=== PATIENT | female | born 1960 | race Caucasian/White ===

== ENCOUNTER 2016-05-23 15:44 | Inpatient (IN) | payer BC ==
[~2016-05-23] VITALS: Ht 157.5 cm; Wt 79.0 kg
[~2016-05-23 15:44] MED LIST: LEVOTHYROXINE PO
[2016-05-23] MEDS ORDERED: ONDANSETRON 4 MG INJ IV STA (18:25)
[2016-05-23] MEDS ORDERED: SOD CHLORIDE 0.9% 1,000 ML IV STA (18:25)
[2016-05-23] MEDS ORDERED: morphine 4 MG/ML VIAL IV STA (18:25)
[2016-05-23 19:38] LABS: ADD SCAN DIFF NO
[2016-05-23 19:41] LABS: BASOPHILS % 0.2 % (0.0-2.0); EOSINOPHILS % 0.2 % (0.0-7.0); HEMATOCRIT 43.6 % (37.0-47.0); HEMOGLOBIN 14.3 g/dl (12.0-16.0); LYMPHOCYTES # 1.1 10^3/ul (0.8-2.9); LYMPHOCYTES % 11.9 % (15.0-51.0); MEAN CORPUSCULAR HEMOGLOBIN 31.4 pg (29.0-33.0); MEAN CORPUSCULAR HGB CONC 32.8 g/dl (32.0-37.0); MEAN CORPUSCULAR VOLUME 95.8 fl (82.0-101.0); MEAN PLATELET VOLUME 9.8 fl (7.4-10.4); MONOCYTE # 0.4 10^3/ul (0.3-0.9); MONOCYTES % 4.6 % (0.0-11.0); NEUTROPHIL # 7.7 10^3/ul (1.6-7.5); NEUTROPHILS % 82.7 % (39.0-77.0); PLATELET COUNT 205 10^3/UL (140-415); RED BLOOD COUNT 4.55 10^6/ul (4.20-5.40); RED CELL DISTRIBUTION WIDTH 12.8 % (11.5-14.5); WHITE BLOOD COUNT 9.3 10^3/ul (4.8-10.8)
[2016-05-23 19:52] LABS: ALBUMIN 4.6 g/dl (3.3-4.9)
[2016-05-23 19:53] LABS: POTASSIUM 3.8 mmol/L (3.5-5.1)
[2016-05-23 19:55] LABS: BILIRUBIN,INDIRECT 0.6 mg/dl (0-1.1); BILIRUBIN,TOTAL 0.6 mg/dl (0.2-1.3); CREATININE 0.78 mg/dl (0.44-1.00)
[2016-05-23 19:56] LABS: ALBUMIN/GLOBULIN RATIO 1.7; CALCIUM 9.6 mg/dl (8.4-10.2); TOTAL PROTEIN 7.3 g/dl (6.1-8.1)
--- NOTE | 2016-05-23 20:12 | RADRPT ---
PROCEDURE: CT abdomen and pelvis without IV contrast. CLINICAL INDICATION: Abdomen pain. TECHNIQUE: CT scan of the abdomen and pelvis was performed on a [address] scanner. The patient is scanned without IV contrast. Coronal and sagittal reformatted images were obtained from the axia l source images. Images were reviewed on a high-resolution PACS workstation. Total radiation dose: Total CTDIvol: 9.6 mGy. Total DLP: 547 mGy-cm. COMPARISON: None available. FINDINGS: CT abdomen: The lung bases are clear. The heart is not enlarged without pericardial thickening or effusion. The liver is normal in size and density without focal mass or intrahepatic biliary dilatation. The spleen is normal in size and homogeneous in density. The stomach is partially collapsed but is sameera sly unremarkable. The pancreas as visualized is normal. The gallbladder is normal and there is no evidence of biliary dilatation. The adrenal glands are symmetrical and normal. The kidneys are symmetrically normal bilaterally. N o renal calculus or obstructive uropathy or mass lesion is seen.. The aorta is normal in caliber. There is no retroperitoneal lymphadenopathy. The jaspal hepatis reg ion is clear. The bowel and mesentery, as visualized, are equally unremarkable. CT pelvis: There is acute early appendicitis with mild periappendiceal stranding in the right lower quadrant. The appendix measures up to 1 cm in diameter. The small bowel loops situated within the pelvis are unremarkable. There is 2.2 cm mature cystic teratoma (dermoid) in the left ovary. Otherwise, the f emale pelvic organs are normal. The pelvic sidewalls and inguinal regions are clear. No mass, lym phadenopathy is seen. No acute inflammation seen. The urinary bladder is normal. The surrounding osseous structures are unremarkable. No osteolytic or osteoblastic lesion is detect ed. IMPRESSION: 1. Acute early appendicitis with mild periappendiceal stranding in the right lower quadrant. The a ppendix measures up to 1 cm in diameter. 2. 2.2 cm mature cystic teratoma (dermoid) in the left ovary. 3. Critical finding was given to the ER physician Dr. Gomez, 08:08 p.m., 05/23/2016.. RPTAT: GG .Paul Sheridan MD, MD Date Time Electronically viewed and signed by .Paul Sheridan MD, MD on 05/23/2016 20:12 .Y/
[2016-05-23 20:20] VITALS: PULSE 83; TEMP 98.9
--- NOTE | 2016-05-23 21:27 | HP ---
Date/Time of Note Date/Time of Note DATE: 05/23/16 TIME: 21:22 Assessment/Plan VTE Prophylaxis VTE Prophylaxis Intervention: SCD's Assessment/Plan Assessment/Plan 56 yo female with no significant past medical history complaining of abdominal pain for the last 6 days. 1. Abdominal pain - 2/2 to acute appendicitis - vs other enterocolitis - such as yersinia spp, will admit the patient to med/surg, Dr. Sullivan was notified, IVF, NPO, pain management, stool studies sent, zofran. 2. GI ppx - pepcid 3. DVT ppx - scds answered all of her questions. as per clinical course. this history and physical took greater then 45 minutes to complete HPI/ROS Admit Date/Time Admit Date/Time 05/23/2016, 9:22 pm Hx of Present Illness 56 yo female with no significant past medical history complaining of abdominal pain for the last 6 days. The abdominal pain is located in the Right lower quadrant, constant, no alleviating factors, 8/10 in intensity, radiating to the left, associated with fevers/chills, nausea with 1 episode of NBNB vomitus and watery yellowish diarrhea 6 episodes. She denies any recent travel, eating new food, trauma, chest pain, shortness of breath, loss of consciousness, sick contacts, or other constitutional symptoms. ED course: IV fluids, pain medications, IV antibiotics ROS 14 point review of systems completed, please refer to HPI for any positive findings PMH/Family/Social Past Medical History Medical History: no pertinent history Past Surgical History s/p colonoscopy with polypectomy, hemorrhoidectomy Family History Significant Family History: no pertinent family hx Social History Alcohol Use: none Smoking Status: Never smoker Drug Use: none Exam/Review of Systems Vital Signs Vitals Vital Signs Date Time Temp Pulse Resp B/P Pulse Ox O2 Delivery O2 Flow Rate FiO2 05/23/16 20:20 98.9 83 20 115/66 97 Room Air Exam Exam Gen Jia: mild to moderate distress 2/2 abdominal pain, AAOx4 HEENT: NC/AT, PERRLA, EOMI, no pharyngeal erythema, no tonsillar exudates, no lymphadenopathy, no JVD, no carotid bruits NECK: supple, no thyromegaly THORAX: symmetrical, no obvious deformities CV: S1S2, RRR, no M/G/R Lungs: CTAB no W/C/R/R Abd: soft, +TTP to [place], +rosvings sign, referred pain, +obturators sign, hyperactive bowel sounds EXT: no edema, no ecchymosis, no clubbing, FROM Neuro: CN II-XII grossly intact, no focal deficits Psych: good mentation, alert and oriented, good mood and affect Skin: C/D/I Labs Result Diagram: 05/23/16189905/23/161899 Medications Medications Current Medications Piperacillin Sod/ Tazobactam Sod (Zosyn 3.375gm/ 100 ml (Pmx)) 100 ml @ 200 mls /hr ONCE ONCE IVPB Last administered on 05/23/16t 21:19; Admin Dose 200 MLS/HR ; Start 05/23/16 at 21:30; Stop 05/23/16 at 21:59 FREDDY DAVIS MD May 23, 2016 21:27
[2016-05-23] MEDS ORDERED: morphine 2 MG INJ IV PRN (21:30)
[2016-05-23] MEDS ORDERED: NACL 0.9% 3 ML SYG IV SCH (21:30)
[2016-05-23] MEDS ORDERED: ONDANSETRON 4 MG INJ IV PRN ×2 (21:30)
[2016-05-23] MEDS ORDERED: PIPER-TAZO 3.375 GM IV (PMX) 100 ML IVPB ONE (21:30)
--- NOTE | 2016-05-23 22:20 | ERA ---
ER Documentation Chief Complaint Date/Time DATE: 05/23/16 TIME: 22:12 Chief Complaint diarrhea for past 5 days HPI 56-year-old female with no significant past medical history presenting with complaints of abdominal pain in the right lower quadrant associated with 6 days of diarrhea. Initially the pain was intermittent, however today it has been significantly worse than it was. She is having over 10 episodes of watery, nonbloody, yellow diarrhea daily, worse with any oral intake. She has subjective chills but no fevers. No associated nausea, vomiting, chest pain, shortness of breath. No recent travel or antibiotics. No sick contacts. ROS All systems reviewed and are negative except as per history of present illness. Medications Home Meds Reported Medications [Levothyroxine] No Conflict Check, PO 11/01/15 Allergies Allergies: Coded Allergies: acetaminophen (Verified Allergy, Severe, FACE SWELLING, 05/23/16) dextromethorphan (Verified Allergy, Severe, FACE SWELLING, 05/23/16) doxylamine (Verified Allergy, Severe, FACE SWELLING, 05/23/16) guaifenesin (Verified Allergy, Severe, FACE SWELLING, 05/23/16) ibuprofen (Verified Allergy, Severe, FACE SWELLING, 05/23/16) pseudoephedrine (Verified Allergy, Severe, FACE SWELLING, 05/23/16) PMhx/Soc History of Surgery: Yes (HEMORRHOIDECTOMY) Anesthesia Reaction: No Hx Neurological Disorder: Yes (TRIGEMINAL NEURALGIA) Hx Respiratory Disorders: No Hx Cardiac Disorders: No Hx Psychiatric Problems: Yes (DEPRESSION) Hx Miscellaneous Medical Probl: No Hx Alcohol Use: No Hx Substance Use: No Hx Tobacco Use: No Smoking Status: Never smoker FmHx Family History: No diabetes Physical Exam Vitals Vital Signs Date Time Temp Pulse Resp B/P Pulse Ox O2 Delivery O2 Flow Rate FiO2 05/23/16 20:20 98.9 83 20 115/66 97 Room Air 05/23/16 15:57 97.8 79 18 162/98 98 Physical Exam Const: Well-developed, nontoxic, in mild distress secondary to pain Head: Atraumatic Eyes: Normal Conjunctiva ENT: Normal External Ears, Nose and Mouth. Neck: Full range of motion. No meningismus. Resp: Clear to auscultation bilaterally Cardio: Regular rate and rhythm, no murmurs Abd: Soft, right lower quadrant tenderness to palpation with guarding, no rebound, non distended. Normal bowel sounds Skin: No petechiae or rashes Back: No midline or flank tenderness Ext: No cyanosis, or edema Neur: Awake and alert Psych: Normal Mood and Affect Result Diagram: 05/23/16 1900 05/23/161899 Results 24 hrs Laboratory Tests Test 05/23/16 19:00 Alanine Aminotransferase (ALT/SGPT) 32IU/L Albumin 4.6g/dl Albumin/Globulin Ratio 1.70 Alkaline Phosphatase 71IU/L Anion Gap 17 Aspartate Amino Transf (AST/SGOT) 26IU/L Basophils # 0.010^3/ul Basophils % 0.2% Blood Urea Nitrogen 15mg/dl Calcium Level 9.6mg/dl Carbon Dioxide Level 27mmol/L Chloride Level 102mmol/L Creatinine 0.78mg/dl Direct Bilirubin 0.00mg/dl Eosinophils # 0.010^3/ul Eosinophils % 0.2% Globulin 2.70g/dl Glucose Level 98mg/dl Hematocrit 43.6% Hemoglobin 14.3g/dl Indirect Bilirubin 0.6mg/dl Lipase 100U/L Lymphocytes # 1.110^3/ul Lymphocytes % 11.9% Mean Corpuscular Hemoglobin 31.4pg Mean Corpuscular Hemoglobin Concent 32.8g/dl Mean Corpuscular Volume 95.8fl Mean Platelet Volume 9.8fl Monocytes # 0.410^3/ul Monocytes % 4.6% Neutrophils # 7.710^3/ul Neutrophils % 82.7% Nucleated Red Blood Cells # 0.010^3/ul Nucleated Red Blood Cells % 0.0/100WBC Platelet Count 01039^3/UL Potassium Level 3.8mmol/L Red Blood Count 4.5510^6/ul Red Cell Distribution Width 12.8% Sodium Level 142mmol/L Total Bilirubin 0.6mg/dl Total Protein 7.3g/dl White Blood Count 9.310^3/ul Current Medications Medications (Trade) Dose Ordered Sig/Argenis Route PRN Reason Start Time Stop Time Status Last Admin Dose Admin Sodium Chloride (NS) 1,000 ml @ 1,000 mls/hr Q1H STAT IV 05/23/16 18:25 05/23/16 19:24 DC 05/23/16 19:00 Morphine Sulfate (morphine) 4 mg ONCE STAT IV 05/23/16 18:25 05/23/16 18:28 DC 05/23/16 19:00 Ondansetron HCl 4 mg 4 mg ONCE STAT IV 05/23/16 18:25 05/23/16 18:28 DC 05/23/16 19:00 Piperacillin Sod/ Tazobactam Sod (Zosyn 3.375gm/ 100 ml (Pmx)) 100 ml @ 200 mls/hr ONCE ONCE IVPB 05/23/16 21:30 05/23/16 21:38 DC 05/23/16 21:19 Ondansetron HCl 4 mg 4 mg BRIDGE ORDER PRN IV NAUSEA AND/OR VOMITING 05/23/16 21:30 05/23/16 21:38 DC Sodium Chloride (NS) 1,000 ml @ 75 mls/hr [id number] IV 05/23/16 21:19 IV Flush (NS 3 ml) 3 ml PER PROTOCOL IV 05/23/16 21:30 Ondansetron HCl (Zofran Inj) 4 mg Q6H PRN IV NAUSEA AND/OR VOMITING 05/23/16 21:30 Morphine Sulfate (morphine) 2 mg Q4H PRN IV SEVERE PAIN LEVEL 7-10 05/23/16 21:30 Famotidine 20 mg 20 mg Q12 IV 05/24/16 09:00 Piperacillin Sod/ Tazobactam Sod (Zosyn 3.375gm/ 100 ml (Pmx)) 100 ml @ 200 mls/hr Q6 IVPB 05/24/16 02:00 Procedures/MDM Patient is presenting with right lower quadrant abdominal pain. She is afebrile and vitals are within normal limits. I have a lower suspicion for appendicitis. I suspect either diverticulitis versus colitis/enteritis. Labs did not show any significant leukocytosis or electrolyte abnormalities. CT of the abdomen and pelvis shows signs of acute early appendicitis. I spoke with Dr. Sullivan, the surgeon on-call, regarding the patient. I suspect the patient has possibly Yersinia enterocolitis. IV antibiotics were started. Patient will be admitted to [facility]. Accepting Care Team: Current data and ongoing care discussed. Time: Time of admission Primary Provider: Tony Consulting: Laurie (General Surgery) Outstanding Data: none Departure Diagnosis: Primary Impression: Acute appendicitis Qualified Code: K35.3 - Acute appendicitis with localized peritonitis Additional Impression: Diarrhea Qualified Code: A09 - Diarrhea of infectious origin Condition: ENEIDA Rosario MD May 23, 2016 22:20
[2016-05-23 22:28] VITALS: BP 140/79; RESP 20
[2016-05-23] MEDS: SOD CHLORIDE 0.9% 1,000 ML IV SCH (22:54)
[2016-05-23 23:08] VITALS: Ht 157.5 cm; Wt 79.0 kg
[2016-05-24] MEDS: PIPER-TAZO 3.375 GM IV (PMX) 100 ML IVPB SCH ×4 (02:19→18:22)
[2016-05-24 05:51] LABS: ADD SCAN DIFF NO
[2016-05-24 05:57] LABS: BASOPHILS % 0.3 % (0.0-2.0); EOSINOPHILS % 0.6 % (0.0-7.0); HEMATOCRIT 37.5 % (37.0-47.0); HEMOGLOBIN 12.5 g/dl (12.0-16.0); LYMPHOCYTES # 0.9 10^3/ul (0.8-2.9); LYMPHOCYTES % 14.4 % (15.0-51.0); MEAN CORPUSCULAR HEMOGLOBIN 32.5 pg (29.0-33.0); MEAN CORPUSCULAR HGB CONC 33.3 g/dl (32.0-37.0); MEAN CORPUSCULAR VOLUME 97.4 fl (82.0-101.0); MEAN PLATELET VOLUME 10.3 fl (7.4-10.4); MONOCYTE # 0.5 10^3/ul (0.3-0.9); MONOCYTES % 8.6 % (0.0-11.0); NEUTROPHIL # 4.8 10^3/ul (1.6-7.5); NEUTROPHILS % 75.9 % (39.0-77.0); RED BLOOD COUNT 3.85 10^6/ul (4.20-5.40); RED CELL DISTRIBUTION WIDTH 12.6 % (11.5-14.5); WHITE BLOOD COUNT 6.3 10^3/ul (4.8-10.8)
[2016-05-24 06:04] LABS: POTASSIUM 3.7 mmol/L (3.5-5.1)
[2016-05-24 06:06] LABS: CREATININE 0.76 mg/dl (0.44-1.00)
[2016-05-24 06:07] LABS: CALCIUM 8.6 mg/dl (8.4-10.2)
[2016-05-24 06:08] LABS: PLATELET COUNT 153 10^3/UL (140-415)
[2016-05-24 07:38] VITALS: BP 104/61; RESP 18
[2016-05-24] MEDS: FAMOTIDINE 20 MG INJ IV SCH ×2 (09:25→20:56)
[2016-05-24] MEDS: SOD CHLORIDE 0.9% 1,000 ML IV SCH ×2 (10:39→13:08)
[2016-05-24] MEDS ORDERED: hydrALAzine 20 MG INJ IV PRN (11:30)
--- NOTE | 2016-05-24 12:35 | PN ---
DATE: 05/24/2016 TIME OF EVALUATION: 11:30 AM SUBJECTIVE DATA: Complains of abdominal pain. Complains of nausea. Denies any vomiting. OBJECTIVE DATA: VITAL SIGNS: Temperature 98.3, pulse is 70, respiratory rate 18, blood pressure 104/61, oxygen saturation 97% on room air. GENERAL: This is an obese [place] female lying in bed in no apparent distress. HEENT: Head normocephalic and atraumatic. Eyes: Anicteric sclerae. Conjunctivae clear. ENT: Nasal septum is midline. Oral mucosa is dry. NECK: Supple. No JVD noticed. RESPIRATORY: Bilaterally clear to auscultation. No adventitious breath sounds. No use of accessory muscles of respiration. CARDIAC: Regular rate and rhythm. No murmurs. ABDOMEN: Soft. Right lower quadrant tenderness with rebound. Abdominal guarding. Bowel sounds are hypoactive in all 4 quadrants. GENITOURINARY: Deferred. EXTREMITIES: No cyanosis, no clubbing. Bilateral lower extremity legs are obese. Peripheral pulses palpable. NEUROLOGIC: The patient is awake, alert and oriented. Cranial nerves are grossly intact. LABORATORY AND DIAGNOSTIC DATA: WBC 6.3, hemoglobin 12.5, hematocrit 37.5, platelet count 153. Sodium 140, potassium 3.7, chloride 107, carbon dioxide 20 , anion gap 16, BUN 11, creatinine 0.76, glucose 98, calcium 8.6. ASSESSMENT AND PLAN: 1. Acute abdominal pain. CT scan of the abdomen and pelvis showing acute early appendicitis with mild periappendiceal stranding in the right lower quadrant. However, the patient was seen and evaluated by general surgery who recommended a gastroenterology evaluation since the patient's abdominal pain may not be from underlying appendicitis. The patient will be continued on antibiotics. The patient will be kept n.p.o. 2. Diarrhea. Stool studies will be ordered on this patient. Gastroenterology consult will be called. The patient already on antibiotics. 3. Fluid, electrolytes and nutrition. Continue the patient n.p.o. Continue IV fluids. 4. Deep venous thrombosis prophylaxis. Bilateral sequential compression devices. 5. Gastrointestinal prophylaxis. Histamine 2 blockers. 6. Plan. Continue pain control. Continue IV antibiotics. Continue n.p.o. Gastroenterology consult called. Monitor in house. The case was discussed with Dr. Ngo. TIFFANY NGO MD, AM/JOSÉ MIGUEL Conf#: [id number] DID#: [id number]
--- NOTE | 2016-05-24 14:25 | CONS ---
Date/Time of Note Date/Time of Note DATE: 05/24/16 TIME: 14:14 Assessment/Plan Assessment/Plan Additional Assessment/Plan Assessment: * Appendicitis. Probably subacute * Being treated with antibiotics per surgeons choice Plan: * Antibiotics per Dr. Sullivan * Close observation * Consider repeat CT or ultrasound Consultation Date/Type/Reason Admit Date/Time 05/23/2016, 9:22 pm Date of Consultation: May 24, 2016 Type of Consultation: GI Hx of Present Illness 56-year-old female hospitalized complaining of approximately 6 days of abdominal pain initially in the epigastric mid abdominal area and more recently localized to the right lower quadrant area, the pain has been associated with persistent diarrhea. There has been no fever, chills or diaphoresis. The patient has never had similar symptoms although she occasionally experiences abdominal pain. Evaluation has resulted in a CT that showed an abnormal appendix which is dilated and suspicious for appendicitis. White blood cell count is within normal limits. The patient reports her symptoms remain relatively stable throughout the day. The patient has been evaluated by Dr. Sullivan from surgical point of view. I reviewed the case with Dr. Sullivan, my impression is patient has appendicitis may be subacute and that surgery should be considered, Dr. Sullivan however has elected to treat conservatively with antibiotics and deferred the possibility of surgery in view of the absence of appendicolith and the presence of symptoms for several days with relatively mild changes in imaging. Constitutional: improved, no complaints Eyes: no complaints ENT: no complaints Respiratory: no complaints Cardiovascular: no complaints Gastrointestinal: decreased appetite, diarrhea, no complaints (Right lower quadrant), pain, No nausea, No vomiting Genitourinary: no complaints Musculoskeletal: no complaints Skin: no complaints Neurologic: no complaints Endocrine: no complaints Lymphatic: no complaints Psychological: nl mood/affect, no complaints Immunologic: no complaints Past Medical History Medical History: no pertinent history, other (Colon polyps approximately a year ago) Past Surgical History Past Surgical Hx: no surgical history Family History Significant Family History: no pertinent family hx Social History Alcohol Use: none Smoking Status: Former smoker Drug Use: none Exam/Review of Systems Vital Signs Vitals Vital Signs Date Time Temp Pulse Resp B/P Pulse Ox O2 Delivery O2 Flow Rate FiO2 05/24/16 07:38 98.3 70 18 104/61 95 05/23/16 20:20 Room Air Intake and Output 05/23/16 05/23/16 05/24/16 15:00 23:00 07:00 Intake Total 100 ml 450 ml Balance 100 ml 450 ml Exam Constitutional: alert, oriented, well developed Psych: nl mood/affect, no complaints Head: atraumatic, normocephalic Eyes: EOMI, PERRL, nl conjunctiva, nl lids, nl sclera ENMT: nl external ears & nose, nl lips & teeth, nl nasal mucosa & septum Neck: non-tender, supple Respiratory: clear to auscultation, normal air movement Cardiovascular: nl pulses, regular rate and rhythm Gastrointestinal: bowel sounds, distended (Mildly), nl liver, spleen, other ( Rectal exam deferred), rebound or guarding (Right lower quadrant), soft, tender (Right lower quadrant), No ascites, No hepatomegaly, No mass, No surgical scars Musculoskeletal: nl extremities to inspection, nl gait and stance Extremities: normal pulses Neurological: TIPPLE GREASER II-XII intact, nl mental status, nl speech, nl strength Skin: nl turgor, No rash or lesions Lymph: nl lymph nodes Results Result Diagram: 05/24/16 0500 05/24/16 0511 Results 24 hrs Laboratory Tests Test 05/23/16 19:00 05/24/16 05:00 05/24/16 05:11 Alanine Aminotransferase (ALT/SGPT) 32 Albumin 4.6 Albumin/Globulin Ratio 1.70 Alkaline Phosphatase 71 Anion Gap 17 H 16 Aspartate Amino Transf (AST/SGOT) 26 Basophils # 0.0 0.0 Basophils % 0.2 0.3 Blood Urea Nitrogen 15 11 Calcium Level 9.6 8.6 Carbon Dioxide Level 27 21 Chloride Level 102 107 Creatinine 0.78 0.76 Direct Bilirubin 0.00 Eosinophils # 0.0 0.0 Eosinophils % 0.2 0.6 Globulin 2.70 Glucose Level 98 78 Hematocrit 43.6 37.5 Hemoglobin 14.3 12.5 Indirect Bilirubin 0.6 Lipase 100 Lymphocytes # 1.1 0.9 Lymphocytes % 11.9 L 14.4 L Mean Corpuscular Hemoglobin 31.4 32.5 Mean Corpuscular Hemoglobin Concent 32.8 33.3 Mean Corpuscular Volume 95.8 97.4 Mean Platelet Volume 9.8 10.3 Monocytes # 0.4 0.5 Monocytes % 4.6 8.6 Neutrophils # 7.7 H 4.8 Neutrophils % 82.7 H 75.9 Nucleated Red Blood Cells # 0.0 0.0 Nucleated Red Blood Cells % 0.0 0.0 Platelet Count 205 153 # Potassium Level 3.8 3.7 Red Blood Count 4.55 3.85 L Red Cell Distribution Width 12.8 12.6 Sodium Level 142 140 Thyroid Stimulating Hormone (TSH) 0.742 Total Bilirubin 0.6 Total Protein 7.3 White Blood Count 9.3 6.3 # Medications Medications Current Medications Sodium Chloride (NS) 1,000 ml @ 75 mls/hr [id number] IV Last administered on 05/24 13:08; Admin Dose 75 MLS/HR; Start 05/23/16 at 21:19 Ondansetron HCl (Zofran Inj) 4 mg Q6H PRN IV NAUSEA AND/OR VOMITING; Start at 21:30 Morphine Sulfate (morphine) 2 mg Q4H PRN IV SEVERE PAIN LEVEL 7-10; Start 05/23 at 21:30 Famotidine 20 mg 20 mg Q12 IV Last administered on 05/24/16 09:25; Admin Dose 20 MG; Start 05/24/16 at 09:00 Piperacillin Sod/ Tazobactam Sod (Zosyn 3.375gm/ 100 ml (Pmx)) 100 ml @ 200 mls /hr Q6 IVPB Last administered on 05/24/16 13:08; Admin Dose 200 MLS/HR; Start 05/24/16 at 02:00 Hydralazine HCl (Apresoline) 10 mg Q6H PRN IV SBP>160; Start 05/24/16 at 11:30 ROBERT FERGUSON MD May 24, 2016 14:24
--- NOTE | 2016-05-24 16:36 | PN ---
Date/Time of Note Date/Time of Note DATE: 05/24/16 TIME: 16:31 Assessment/Plan Lines/Catheters IV Catheter Type (from [facility] [[email or web address] Peripheral IV Assessment/Plan Chief Complaint/Hosp Course 1. Abdominal pain of unknown etiology. Questionable acute mild appendicitis however pain 1 week. No leukocytosis. Patient has nausea and diarrhea.DDx: Mild decubitus situs versus gastroenteritis versus other. I had a long discussion with patient in terms of antibiotic therapy versus proceeding to surgery for appendectomy. Since she does not have an appendicolith we may be able to just treat her with antibiotics if this is appendicitis. Patient wants to avoid surgery if possible and elects to proceed with just antibiotic therapy arm. However she understand if the pain worsens or she is not improving, we will proceed with laparoscopy and appendectomy. -Antibiotics -Judicious fluid management -Supportive therapy. 2. BMI 32 -Nutrition optimization encouraged -Exercise encouraged 3. Diarrhea of unknown etiology -GI consultation for workup -Stool for C. difficile and ova and parasite -Judicious fluid management 4. History of depression -Medical and psychiatric optimization 5. Osteoarthritis -Medical optimization Thank you Dictation #: [id number] Problems: Subjective 24 Hr Interval Summary Pain persistent right lower quadrant. No nausea vomiting. No fevers or chills. No chest pain or shortness of breath. No visual or neurologic changes. No dysuria. Bowel function with loose stool. Exam/Review of Systems Vital Signs Vitals Vital Signs Date Time Temp Pulse Resp B/P Pulse Ox O2 Delivery O2 Flow Rate FiO2 05/24/16 07:38 98.3 70 18 104/61 95 05/23/16 20:20 Room Air Intake and Output 05/23/16 05/23/16 05/24/16 15:00 23:00 07:00 Intake Total 100 ml 450 ml Balance 100 ml 450 ml Exam Constitutional: alert, obese, oriented, No distress Psych: nl mood/affect, No anxiety, No confusion Head: atraumatic, normocephalic Eyes: EOMI, PERRL, nl conjunctiva, No icteric ENMT: mucosa pink and moist, nl external ears & nose, nl lips & teeth Neck: non-tender, supple, No jvd Respiratory: normal air movement, No congested cough, No labored breathing Cardiovascular: regular rate and rhythm, No edema Gastrointestinal: soft, tender (minimally and right lower quadrant without rebound, guarding, rigidity), No rebound or guarding Musculoskeletal: nl extremities to inspection, nl gait and stance, No joint tenderness Extremities: normal pulses, No calf tenderness Neurological: nl mental status, nl speech, nl strength Skin: nl turgor, No diaphoresis, No rash or lesions Lymph: nl lymph nodes Results Result Diagram: 05/24/16 0500 05/24/16 0511 LOWELL DUNCAN MD May 24, 2016 16:36
--- NOTE | 2016-05-24 19:01 | CONS ---
DATE OF ADMISSION: 05/23/2016 DATE OF CONSULTATION: 05/23/2016 TYPE OF CONSULTATION: Surgical. REFERRING PHYSICIAN: Xiomara Oneill MD CHIEF COMPLAINT: 1. Abdominal pain. 2. Possible mild appendicitis. 3. BMI of 32. HISTORY OF PRESENT ILLNESS: Ms. Мария Ballesteros is a 56-year-old female with co-morbidities, who pres ents with a week of abdominal pain in the right lower quadrant associated with nausea, but no vomiti ng, subjective chills, but no fever. She has had multiple bouts of diarrhea. No dysuria. No vagin al discharge. No trauma or sick contacts. No cough. No seizure. No blood per mouth or rectum. N o visual or neurologic changes. No previous history of the same. Pain is crampy and sharp, and serjio etimes radiates to the upper abdomen. In the emergency room, her labs are mostly normal without leukocytosis. CT scan identifies acute ea rly appendicitis with mild periappendiceal stranding in the right lower quadrant. There is no appen dicolith noted. There is a 2.2-cm mature cystic teratoma in the left ovary. Patient is admitted, a nd surgical consult is obtained for further evaluation and treatment. PAST MEDICAL HISTORY: 1. BMI 32. 2. Abdominal pain times a week. 3. Diarrhea times a week. 4. Headache history. 5. Trigeminal neuralgia. 6. Bronchitis history. 7. History of heavy alcohol use, quit 5 years ago. 8. History of smoking, quit. 9. Osteoarthritis. 10. Depression. PAST SURGICAL HISTORY: Hemorrhoidectomy in [place]. FAMILY HISTORY: Father with hypertension. Mother with hypertension and cardiac disease. Siblings with metabolic disease. REVIEW OF SYSTEMS: A 12-point review of systems negative unless suggested in HPI. PHYSICAL EXAMINATION: VITAL SIGNS: Temperature is 97.9, pulse 76, blood pressure 140/79, saturating 97% on room air. GENERAL: No acute distress, obese. HEENT: Pupils equal, reactive. No scleral icterus. Mucous membranes are somewhat dry. NECK: Supple, no JVD RESPIRATORY: Normal respiratory effort. No wheezing. HEART: S1, S2 present. ABDOMEN: Soft, minimally tender in right lower quadrant. No Barba's, no rebound, no guarding, not rigid. No Rovsing's. EXTREMITIES: No edema. VASCULAR: Cap refill less than 2 seconds. NEUROLOGIC: Alert, oriented, moves all 4 extremities grossly. LABORATORY AND RADIOGRAPHIC DATA: As per chart and HPI. ASSESSMENT AND PLAN: Ms. Мария Ballesteros is a 56-year-old female with multiple comorbidities. 1. Abdominal pain of unknown etiology. Questionable acute mild appendicitis; however, pain x1 week . No leukocytosis. Patient has nausea and diarrhea. Differential diagnosis includes mild acute ap pendicitis versus gastroenteritis versus other. I had a long discussion with patient in terms of an tibiotic therapy versus proceeding to surgery for appendectomy. Since she does not have an appendic olith, we may be able to just treat her with antibiotic if this is appendicitis. Patient wants to a void surgery if possible and elects to proceed with just the antibiotic therapy. However, she unde rstands if the pain worsens or she is not improving, we will proceed with laparoscopy and appendecto my. 2. Antibiotics. 3. Judicious fluid management. 4. Supportive therapy. 5. BMI 32. 6. Nutrition optimization encouraged. 7. Exercise encouraged. 8. Diarrhea of unknown etiology. GI consultation for workup. 9. Stool for C. diff and ova and parasites. 10. Judicious fluid management. 11. History of depression. 12. Medical and psychiatric optimization. 13. Osteoarthritis. 14. Medical optimization. Thank you very much for consulting me in this patient's care. Dictated By: LOWELL AMBROSIO/JOSÉ MIGUEL Conf#: [id number] DID#: [id number]
[2016-05-24 19:30] VITALS: BP 119/69; RESP 18
[2016-05-25] MEDS: PIPER-TAZO 3.375 GM IV (PMX) 100 ML IVPB SCH ×4 (00:23→17:32)
[2016-05-25] MEDS: SOD CHLORIDE 0.9% 1,000 ML IV SCH ×3 (04:44→20:01)
[2016-05-25 04:52] LABS: ADD SCAN DIFF NO
[2016-05-25 04:56] LABS: BASOPHILS % 0.6 % (0.0-2.0); EOSINOPHILS # 0.1 10^3/ul (0.0-0.5); EOSINOPHILS % 2.4 % (0.0-7.0); LYMPHOCYTES # 1.3 10^3/ul (0.8-2.9); LYMPHOCYTES % 40.9 % (15.0-51.0); MEAN CORPUSCULAR HEMOGLOBIN 31.9 pg (29.0-33.0); MEAN CORPUSCULAR HGB CONC 33.3 g/dl (32.0-37.0); MEAN CORPUSCULAR VOLUME 95.7 fl (82.0-101.0); MEAN PLATELET VOLUME 9.6 fl (7.4-10.4); MONOCYTE # 0.3 10^3/ul (0.3-0.9); MONOCYTES % 8.5 % (0.0-11.0); NEUTROPHIL # 1.6 10^3/ul (1.6-7.5); NEUTROPHILS % 47.3 % (39.0-77.0); PLATELET COUNT 143 10^3/UL (140-415); RED BLOOD COUNT 3.76 10^6/ul (4.20-5.40); RED CELL DISTRIBUTION WIDTH 12.7 % (11.5-14.5); WHITE BLOOD COUNT 3.3 10^3/ul (4.8-10.8)
[2016-05-25 05:32] LABS: ALBUMIN 3.2 g/dl (3.3-4.9)
[2016-05-25 05:33] LABS: POTASSIUM 3.4 mmol/L (3.5-5.1)
[2016-05-25 05:35] LABS: ALBUMIN/GLOBULIN RATIO 1.45; BILIRUBIN,INDIRECT 0.6 mg/dl (0-1.1); BILIRUBIN,TOTAL 0.6 mg/dl (0.2-1.3); CREATININE 0.77 mg/dl (0.44-1.00); TOTAL PROTEIN 5.4 g/dl (6.1-8.1)
[2016-05-25 05:36] LABS: CALCIUM 8.3 mg/dl (8.4-10.2)
[2016-05-25] MEDS: LEVOTHYROXINE 75 MCG TAB PO SCH (05:47)
[2016-05-25 06:02] LABS: MAGNESIUM 1.7 mg/dl (1.7-2.5); PHOSPHORUS 3.2 mg/dl (2.5-4.9)
[2016-05-25 07:43] VITALS: BP 125/81; RESP 20
[2016-05-25 07:53] LABS: THYROID STIMULATING HORMONE 0.919 MIU/L (0.465-4.680)
[2016-05-25] MEDS: FAMOTIDINE 20 MG INJ IV SCH ×2 (08:19→20:01)
--- NOTE | 2016-05-25 09:26 | PN ---
Date/Time of Note Date/Time of Note DATE: 05/25/16 TIME: 09:23 Assessment/Plan Lines/Catheters IV C[facility]ter Type (from [facility]): Peripheral IV Assessment/Plan Chief Complaint/Hosp Course 1. Abdominal pain of unknown etiology. Questionable acute mild appendicitis however pain 1 week. No leukocytosis. Patient has nausea and diarrhea.DDx: Mild decubitus situs versus gastroenteritis versus other. I had a long discussion with patient in terms of antibiotic therapy versus proceeding to surgery for appendectomy. Since she does not have an appendicolith we may be able to just treat her with antibiotics if this is appendicitis. Patient wants to avoid surgery if possible and elects to proceed with just antibiotic therapy arm. However she understand if the pain worsens or she is not improving, we will proceed with laparoscopy and appendectomy. -Antibiotics -Judicious fluid management -Advance diet as tolerated -Supportive therapy 2. BMI 32 -Nutrition optimization encouraged -Exercise encouraged 3. Diarrhea of unknown etiology. Workup in process. GI following -Stool for C. difficile and ova and parasite -Judicious fluid management 4. History of depression -Medical and psychiatric optimization 5. Osteoarthritis -Medical optimization Thank you Problems: Subjective 24 Hr Interval Summary Pain improved in right lower quadrant. No nausea vomiting. No fevers or chills. No chest pain or shortness of breath. No visual or neurologic changes. No dysuria. Bowel function with loose stool. Exam/Review of Systems Vital Signs Vitals Vital Signs Date Time Temp Pulse Resp B/P Pulse Ox O2 Delivery O2 Flow Rate FiO2 05/25/16 07:43 98.6 54 20 125/81 98 05/23/16 20:20 Room Air Intake and Output 05/24/16 05/24/16 05/25/16 15:00 23:00 07:00 Intake Total 650 ml 980 ml 925 ml Balance 650 ml 980 ml 925 ml Exam Free Text/Dictation Constitutional: alert, obese, oriented, No distress Psych: nl mood/affect, No anxiety, No confusion Head: atraumatic, normocephalic Eyes: EOMI, PERRL, nl conjunctiva, No icteric ENMT: mucosa pink and moist, nl external ears & nose, nl lips & teeth Neck: non-tender, supple, No jvd Respiratory: normal air movement, No congested cough, No labored breathing Cardiovascular: regular rate and rhythm, No edema Gastrointestinal: soft, NT, No rebound or guarding Musculoskeletal: nl extremities to inspection, nl gait and stance, No joint tenderness Extremities: normal pulses, No calf tenderness Neurological: nl mental status, nl speech, nl strength Skin: nl turgor, No diaphoresis, No rash or lesions Lymph: nl lymph nodes Results Result Diagram: 05/25/16 0439 05/25/16 0439 LOWELL DUNCAN MD May 25, 2016 09:26
[2016-05-25] MEDS ORDERED: POTASSIUM CHLORIDE (SR) 20 MEQ TAB PO STA (10:49)
--- NOTE | 2016-05-25 14:39 | PN ---
Date/Time of Note Date/Time of Note DATE: 05/25/16 TIME: 14:37 Assessment/Plan VTE Prophylaxis VTE Prophylaxis Intervention: SCD's Lines/Catheters IV Catheter Type (from Nrs): Peripheral IV Assessment/Plan Chief Complaint/Hosp Course Assessment and plan 1. Abdominal pain secondary to early appendicitis. Surgeon following. Continue on antibiotic regimen. Possible surgical intervention per surgeon. Will monitor to see if patient has good response antibiotics. Possible laparoscopic appendectomy should patient continue to have further abdominal pain. Continue IV hydration. 2. Hypokalemia. We'll monitor and replete as needed Disposition and plan: Continue on antibiotics. Continue with analgesics as needed. We'll for clinical improvement of appendicitis. Possible left septic appendectomy should patient continue to have further pain Discussed but of care with Dr. Arnold Problems: Subjective 24 Hr Interval Summary Free Text/Dictation with minimal pain on right lower abdominal area Exam/Review of Systems Vital Signs Vitals Vital Signs Date Time Temp Pulse Resp B/P Pulse Ox O2 Delivery O2 Flow Rate FiO2 05/25/16 07:43 98.6 54 20 125/81 98 05/23/16 20:20 Room Air Intake and Output 05/24/16 05/24/16 05/25/16 15:00 23:00 07:00 Intake Total 650 ml 980 ml 925 ml Balance 650 ml 980 ml 925 ml Exam General: No acute signs or symptoms of distress Eyes: pupils equal round, Anicteric sclera Neck: Supple nontender, no JVD Cardiac: S1, S2 auscultated, regular rhythm and rate Pulmonary: No coarse rhonchi or breathing auscultated GI: Minimally tender on palpation Extremities: No edema bilateral lower extremities Skin: Clean dry and intact Neurologic: Alert to person place and time and situation Results Result Diagram: 05/25/16 0439 05/25/16 0439 Results 24 hrs Laboratory Tests Test 05/25/16 04:39 Alanine Aminotransferase (ALT/SGPT) 27 Albumin 3.2 #L Albumin/Globulin Ratio 1.45 Alkaline Phosphatase 41 L Anion Gap 13 Aspartate Amino Transf (AST/SGOT) 19 Basophils # 0.0 Basophils % 0.6 Blood Urea Nitrogen 10 Calcium Level 8.3 L Carbon Dioxide Level 25 Chloride Level 109 Cholesterol Level 145 Cholesterol/HDL Ratio 2.0 Creatinine 0.77 Direct Bilirubin 0.00 Eosinophils # 0.1 Eosinophils % 2.4 Free Thyroxine 1.04 Globulin 2.20 Glucose Level 68 #L HDL Cholesterol 72 Hematocrit 36.0 L Hemoglobin 12.0 Hemoglobin A1c 5.5 Indirect Bilirubin 0.6 LDL Cholesterol, Calculated 66 Lymphocytes # 1.3 Lymphocytes % 40.9 Magnesium Level 1.7 Mean Corpuscular Hemoglobin 31.9 Mean Corpuscular Hemoglobin Concent 33.3 Mean Corpuscular Volume 95.7 Mean Platelet Volume 9.6 Monocytes # 0.3 Monocytes % 8.5 Neutrophils # 1.6 Neutrophils % 47.3 Nucleated Red Blood Cells # 0.0 Nucleated Red Blood Cells % 0.0 Phosphorus Level 3.2 Platelet Count 143 Potassium Level 3.4 L Red Blood Count 3.76 L Red Cell Distribution Width 12.7 Sodium Level 144 Thyroid Stimulating Hormone (TSH) 0.919 Total Bilirubin 0.6 Total Protein 5.4 #L Triglycerides Level 35 White Blood Count 3.3 #L Medications Medications Current Medications Sodium Chloride (NS) 1,000 ml @ 75 mls/hr [id number] IV Last administered on 05/25 04:44; Admin Dose 75 MLS/HR; Start 05/23/16 at 21:19 Ondansetron HCl (Zofran Inj) 4 mg Q6H PRN IV NAUSEA AND/OR VOMITING; Start at 21:30 Morphine Sulfate (morphine) 2 mg Q4H PRN IV SEVERE PAIN LEVEL 7-10; Start 05/23 at 21:30 Famotidine 20 mg 20 mg Q12 IV Last administered on 05/25/16 08:19; Admin Dose 20 MG; Start 05/24/16 at 09:00 Piperacillin Sod/ Tazobactam Sod (Zosyn 3.375gm/ 100 ml (Pmx)) 100 ml @ 200 mls /hr Q6 IVPB Last administered on 05/25/16 12:35; Admin Dose 200 MLS/HR; Start 05/24/16 at 02:00 Hydralazine HCl (Apresoline) 10 mg Q6H PRN IV SBP>160; Start 05/24/16 at 11:30 Levothyroxine Sodium (Synthroid) 75 mcg DAILY@06 PO Last administered on 05:47; Admin Dose 75 MCG; Start 05/25/16 at 06:00 JODEE SANCHEZ May 25, 2016 14:39
[2016-05-25 19:04] VITALS: BP 118/69; RESP 18
[2016-05-26] MEDS: PIPER-TAZO 3.375 GM IV (PMX) 100 ML IVPB SCH ×4 (01:00→18:00)
[2016-05-26] MEDS: LEVOTHYROXINE 75 MCG TAB PO SCH (05:34)
[2016-05-26 07:32] VITALS: BP 121/73; RESP 20
[2016-05-26] MEDS: SOD CHLORIDE 0.9% 1,000 ML IV SCH (07:42)
[2016-05-26] MEDS: FAMOTIDINE 20 MG INJ IV SCH (08:07)
[2016-05-26 09:19] LABS: ADD SCAN DIFF NO
[2016-05-26 09:23] LABS: BASOPHILS % 0.7 % (0.0-2.0); EOSINOPHILS # 0.1 10^3/ul (0.0-0.5); EOSINOPHILS % 2.9 % (0.0-7.0); HEMOGLOBIN 12.7 g/dl (12.0-16.0); LYMPHOCYTES # 1.3 10^3/ul (0.8-2.9); LYMPHOCYTES % 40.8 % (15.0-51.0); MEAN CORPUSCULAR HEMOGLOBIN 31.9 pg (29.0-33.0); MEAN CORPUSCULAR HGB CONC 33.4 g/dl (32.0-37.0); MEAN CORPUSCULAR VOLUME 95.5 fl (82.0-101.0); MEAN PLATELET VOLUME 9.3 fl (7.4-10.4); MONOCYTE # 0.3 10^3/ul (0.3-0.9); MONOCYTES % 8.5 % (0.0-11.0); NEUTROPHIL # 1.4 10^3/ul (1.6-7.5); NEUTROPHILS % 46.4 % (39.0-77.0); PLATELET COUNT 164 10^3/UL (140-415); RED BLOOD COUNT 3.98 10^6/ul (4.20-5.40); RED CELL DISTRIBUTION WIDTH 12.7 % (11.5-14.5); WHITE BLOOD COUNT 3.1 10^3/ul (4.8-10.8)
[2016-05-26 09:39] LABS: POTASSIUM 4.2 mmol/L (3.5-5.1)
[2016-05-26 09:42] LABS: CREATININE 0.81 mg/dl (0.44-1.00)
[2016-05-26 09:43] LABS: CALCIUM 8.8 mg/dl (8.4-10.2)
[2016-05-26] MEDS ORDERED: CIPR500T4 PO (14:16)
[2016-05-26] MEDS ORDERED: TRAM50TA2 PO (14:16)
[2016-05-26] MEDS ORDERED: METR500T14 PO (14:16)
[2016-05-26] MEDS ORDERED: SYN75 PO (14:16)
--- NOTE | 2016-05-26 14:18 | PDOCDIS ---
Discharge Instructions DIAGNOSIS Discharge Diagnosis: 1. Early appendicitis 2. History of hypothyroidism CONDITION Patient Condition: Stable HOME CARE INSTRUCTIONS: Diet Instructions: Low Fat /CholesterolSpecial Diet: soft diet FOLLOW UP/APPOINTMENTS Appointments 1. Follow-up with your primary care provider within a week OTHER ORDERS: Other Orders: 1. Go to the ER if he have worsening abdominal pain nausea or vomiting JODEE SANCHEZ May 26, 2016 14:18
--- NOTE | 2016-05-26 14:22 | DS ---
Date/Time of Note Date/Time of Note DATE: 05/26/16 TIME: 14:19 Discharge Summary Admission/Discharge Info Admit Date/Time May 23, 2016 at 21:07 Discharge Date/Time Final Diagnosis 1. Early appendicitis 2. History of hypothyroidism Hospital Course This is a 56-year-old female with reported history of hypothyroidism came to [facility] due to reports of abdominal pain for 60s region. Patient did report her pain was on her right lower abdominal quadrant. She did have some associated fevers chills and nausea and vomiting. She did go to [facility] due to the aforementioned issues. Patient did have CT scan of her abdomen that did show early appendicitis. She was seen by general surgeon. Patient during his admission was reluctant to have surgery. As such, she was treated with antibiotics. She was informed that should she have worse abdominal pain she likely would need upper scopic appendectomy during this admission. She did have good response to antibiotics and her fevers did subside. She did report resolution of her abdominal pain during her course of stay. During her course of stay she did improve. She was otherwise optimized medically. She was continued on her Synthroid medication for her hypothyroidism. The plan of care was discussed with the patient and patient did verbalize her understanding. On the day of discharge patient was in stable condition Discussed on appropriate [place] Discharge process time is 40 minutes Disposition: Home Home Meds Active Scripts Levothyroxine Sodium* (Synthroid*) 75 Mcg Tablet, 75 MCG PO DAILY@06 for 30 Days , TAB Prov:JODEE SANCHEZ 05/26/16 Metronidazole (Flagyl) 500 Mg Tab, 500 MG PO Q8, #21 TAB Prov:JODEE SANCHEZ 05/26/16 Ciprofloxacin Hcl* (Ciprofloxacin Hcl*) 500 Mg Tablet, 500 MG PO BID, #14 TAB Prov:JODEE SANCHEZ 05/26/16 Reported Medications [Levothyroxine] No Conflict Check, PO 11/01/15 Follow-up Plan CONDITION Patient Condition: Stable HOME CARE INSTRUCTIONS: Diet Instructions: Low Fat /CholesterolSpecial Diet: soft diet FOLLOW UP/APPOINTMENTS Appointments 1. Follow-up with your primary care provider within a week OTHER ORDERS: Other Orders: 1. Go to the ER if he have worsening abdominal pain nausea or vomiting Pending Labs Laboratory Tests Test 05/26/16 09:09 Anion Gap 14 (8-16) Basophils # 0.010^3/ul (0.0-0.1) Basophils % 0.7% (0.0-2.0) Blood Urea Nitrogen 9mg/dl (7-20) Calcium Level 8.8mg/dl (8.4-10.2) Carbon Dioxide Level 25mmol/L (21-31) Chloride Level 108mmol/L (97-110) Creatinine 0.81mg/dl (0.44-1.00) Eosinophils # 0.110^3/ul (0.0-0.5) Eosinophils % 2.9% (0.0-7.0) Glucose Level 140mg/dl (70-220) Hematocrit 38.0% (37.0-47.0) Hemoglobin 12.7g/dl (12.0-16.0) Lymphocytes # 1.310^3/ul (0.8-2.9) Lymphocytes % 40.8% (15.0-51.0) Mean Corpuscular Hemoglobin 31.9pg (29.0-33.0) Mean Corpuscular Hemoglobin Concent 33.4g/dl (32.0-37.0) Mean Corpuscular Volume 95.5fl (82.0-101.0) Mean Platelet Volume 9.3fl (7.4-10.4) Monocytes # 0.310^3/ul (0.3-0.9) Monocytes % 8.5% (0.0-11.0) Neutrophils # 1.410^3/ul (1.6-7.5) Neutrophils % 46.4% (39.0-77.0) Nucleated Red Blood Cells # 0.010^3/ul (0.0-0.0) Nucleated Red Blood Cells % 0.0/100WBC (0.0-0.0) Platelet Count 16455^3/UL (140-415) Potassium Level 4.2mmol/L (3.5-5.1) Red Blood Count 3.9810^6/ul (4.20-5.40) Red Cell Distribution Width 12.7% (11.5-14.5) Sodium Level 143mmol/L (135-144) White Blood Count 3.110^3/ul (4.8-10.8) JODEE SANCHEZ May 26, 2016 14:22
--- NOTE | 2016-05-26 20:50 | PN ---
Date/Time of Note Date/Time of Note DATE: 05/26/16 TIME: 20:50 Assessment/Plan Lines/Catheters IV [facility] (from [facility]): Peripheral IV Assessment/Plan Chief Complaint/Hosp Course 1. Abdominal pain of unknown etiology. Questionable acute mild appendicitis however pain 1 week. No leukocytosis. Patient has nausea and diarrhea.DDx: Mild decubitus situs versus gastroenteritis versus other. I had a long discussion with patient in terms of antibiotic therapy versus proceeding to surgery for appendectomy. Since she does not have an appendicolith we may be able to just treat her with antibiotics if this is appendicitis. Patient wants to avoid surgery if possible and elects to proceed with just antibiotic therapy arm. However she understand if the pain worsens or she is not improving, we will proceed with laparoscopy and appendectomy. -Antibiotics -Judicious fluid management -Advance diet as tolerated -DC planning 2. BMI 32 -Nutrition optimization encouraged -Exercise encouraged 3. Diarrhea of unknown etiology. Workup in process. GI following -Stool for C. difficile and ova and parasite -Judicious fluid management 4. History of depression -Medical and psychiatric optimization 5. Osteoarthritis -Medical optimization Thank you Late entry Problems: Subjective 24 Hr Interval Summary Pain improved in right lower quadrant. No nausea vomiting. No fevers or chills. No chest pain or shortness of breath. No visual or neurologic changes. No dysuria. Bowel function with loose stool. Exam/Review of Systems Vital Signs Vitals Vital Signs Date Time Temp Pulse Resp B/P Pulse Ox O2 Delivery O2 Flow Rate FiO2 05/26/16 07:32 97.7 76 20 121/73 98 05/23/16 20:20 Room Air Intake and Output 05/25/16 05/25/16 05/26/16 15:00 23:00 07:00 Intake Total 2275 ml 1455 ml Output Total 0 ml Balance 2275 ml 1455 ml Exam Free Text/Dictation Constitutional: alert, obese, oriented, No distress Psych: nl mood/affect, No anxiety, No confusion Head: atraumatic, normocephalic Eyes: EOMI, PERRL, nl conjunctiva, No icteric ENMT: mucosa pink and moist, nl external ears & nose, nl lips & teeth Neck: non-tender, supple, No jvd Respiratory: normal air movement, No congested cough, No labored breathing Cardiovascular: regular rate and rhythm, No edema Gastrointestinal: soft, NT, No rebound or guarding Musculoskeletal: nl extremities to inspection, nl gait and stance, No joint tenderness Extremities: normal pulses, No calf tenderness Neurological: nl mental status, nl speech, nl strength Skin: nl turgor, No diaphoresis, No rash or lesions Lymph: nl lymph nodes Results Result Diagram: 05/26/16 0909 05/26/16 0909 LOWELL DUNCAN MD May 26, 2016 20:50
== END 2016-05-26 18:40 | disposition home or self-care (01) | DRG 395 ==
LOC: FTE 15:44 → MS2 21:07
PROVIDERS: ADMIT Student in an Organized Health Care Education/Training Program; ATTEND Student in an Organized Health Care Education/Training Program
DX: K35.80 Unspecified acute appendicitis (principal); E87.6 Hypokalemia; R19.7 Diarrhea, unspecified; M19.90 Unspecified osteoarthritis, unspecified site
CPT/HCPCS: 36415; 74176; 80048; 80053; 80061; 83036; 83690; 83735; 84100; 84439; 84443; 85025; 87045; 87075; 87177; 87205; 96365; 96375; J2270; J2405; J2543; J7030